=== PATIENT | female | born 1945 | race Caucasian/White ===

== ENCOUNTER → 2020-04-11 | Outpatient (CLI) | payer MEDICARE ==
[~2020-04-11] MED LIST: ASPIRIN325 M2 PO; ASPIRIN325 MG PO; BIOTIN; CHOLESTYRAMINE L4 GM PO; FUROSEMIDE40 MG PO; GLUCOSAMINE CH1 EAC2 PO; HOME PO; LASIX; LEVOTHYROXINE100 MCG PO; MULTIVITAMIN; NEXIUM40 MG; NYSTATIN-TRIAMC15 GM TOP; OMEGA PO; PAXIL40 MG PO; PRENATAL VITAM1 EAC4; REGADENOSON 0.4 MG/5 ML SYR IV ONE; SERTRALINE HCL100 MG PO; TYLENOL; ULTRAM 50MG50 MG PO; VITAMIN; Z.0.AMBIEN10 MG PO; Z.0.CARDURA8 MG PO; Z.0.EFFEXOR XR150 MG PO; Z.0.LEVOTHYROXINE100; Z.0.NEXIUM40 MG PO; Z.0.NORVASC5 MG PO; Z.0.SINGULAIR10 MG PO; Z.1.FISH OIL 1,2001 PO; ZOLPIDEM TARTRA10 MG PO; [UNRECOGNIZED DRUG - CODE] PO
--- NOTE | 2020-04-12 04:29 | Myoview Stress Test ---
DATE OF STUDY: 04/11/2020 09:22:00 Stress Test - Treadmill ONLY Dictation #[id number] PROCEDURE TITLE: Rest/stress single isotope SPECT imaging with pharmacologic stress and gated SPECT imaging. INDICATION: Chest pain. PROCEDURE IN DETAIL: Pharmacologic stress testing was performed with regadenoson per protocol. The heart rate was 72 beats per minute at rest, increased to 94 beats per minute during the regadenoson infusion. The resting blood pressure 124/71 mmHg and increased to 138/47 mmHg, which is a normal response. The resting electrocardiogram demonstrated normal sinus rhythm. There were no ST-segment changes suggestive of myocardial ischemia. Myocardial perfusion imaging was performed at rest following the injection of 11 mCi of tetrofosmin. At peak pharmacologic effect, the patient was injected with 31.6 mCi of tetrofosmin. Gated post-stress tomographic imaging was performed. FINDINGS: The overall quality of study is fair. Left ventricular cavity is noted to be normal size on the rest and stress studies. SPECT images demonstrate homogeneous tracer distribution throughout the myocardium. Gated SPECT imaging reveals normal myocardial thickening and wall motion. The left ventricular ejection fraction was calculated to be 66%. IMPRESSION: Myocardial perfusion imaging is normal. Overall, left ventricular systolic function was normal without regional wall motion abnormalities. Kecia Hall MD ABS/MODL /[id number]
== END ==
LOC: NM 09:05
PROVIDERS: ATTEND Internal Medicine
DX: R07.9 Chest pain, unspecified (principal); Z86.73 Personal history of transient ischemic attack (TIA), and cerebral infarction without residual deficits
CPT/HCPCS: 78452; 93017; 93880; A9502; J2785

== ENCOUNTER 2023-08-13 08:35 | Inpatient (IN) | payer MEDICARE ==
[~2023-08-13] VITALS: Ht 160 cm; Wt 76.7 kg
[2023-08-13] VITALS (17 sets, daily range): BP systolic 79–125; BP diastolic 45–98; PULSE 69–90; RESP 16–28; TEMP 98.4–102; O2SAT 87–100
[~2023-08-13 08:35] MED LIST changes: -REGADENOSON 0.4 MG/5 ML SYR IV ONE
[2023-08-13] MEDS ORDERED: METHYLPREDNISOLONE SOD SUCC 125 MG/2ML VIAL IV STA (08:43)
[2023-08-13 09:07] LABS: BASOPHILS % 0.6 % (0.0-1.0); EOSINOPHILS % 0.3 % (0.0-6.0); HEMATOCRIT 36.9 % (34.2-44.1); HEMOGLOBIN 11.7 g/dL (12.0-16.0); LYMPHOCYTES # (AUTO) 0.6 (1.0-3.2); LYMPHOCYTES % 17.2 % (18.0-39.1); MEAN CORPUSCULAR HEMOGLOBIN 29.3 pg (28-32); MEAN CORPUSCULAR HGB CONC 31.7 g/dL (31-35); MEAN CORPUSCULAR VOLUME 92.5 fL (81-99); MONOCYTES # (AUTO) 0.1 (0.2-0.8); MONOCYTES % 3.7 % (4.4-11.3); NEUTROPHILS # (AUTO) 2.8 (2.1-6.9); NEUTROPHILS % 77.9 % (38.7-80.0); PLATELET COUNT 175 x10e3/uL (140-360); RED BLOOD COUNT 3.99 x10e6/uL (3.6-5.1); RED CELL DISTRIBUTION WIDTH 13.6 % (11.7-14.4); WHITE BLOOD COUNT 3.55 x10e3/uL (4.8-10.8)
[2023-08-13] MEDS ORDERED: SODIUM CHLORIDE 0.9% 500ML 500 ML IV ONE ×2 (09:15→10:30)
[2023-08-13] MEDS ORDERED: ACETAMINOPHEN 1000 MG/100 ML IV STA (09:18)
[2023-08-13] MEDS: Doxycycline IV 100 MG in SODIUM CHLORIDE 0.9% 100 ML IV SCH ×2 (09:24→20:21)
[2023-08-13 09:28] LABS: ABG HCO3 17 mmol/L (22-26); ABG PCO2 31 mmHg (35-45); ABG PH 7.34 (7.35-7.45); ABG PO2 64 mmHg (80-105); ABG TCO2 18
[2023-08-13 09:43] LABS: ALBUMIN 3.5 g/dL (3.5-5.0); ANION GAP 25.6 mmol/L (8-16); BILIRUBIN,TOTAL 1.7 mg/dL (0.2-1.2); CREATININE, SERUM 2.26 mg/dL (0.57-1.11); MAGNESIUM 1.8 MG/DL (1.3-2.1); POTASSIUM 3.6 mmol/L (3.5-5.1); TOTAL PROTEIN 7.1 g/dL (6.5-8.1)
[2023-08-13 09:45] LABS: INR 1.06; PARTIAL THROMBOPLASTIN TIME 31.1 seconds (23.8-35.5)
[2023-08-13 09:49] LABS: TROPONIN I 0.011 ng/mL (0-0.300)
[2023-08-13 09:54] LABS: B-TYPE NATRIURETIC PEPTIDE2 273.1 pg/mL (0-100)
[2023-08-13] MEDS ORDERED: SIMETHICONE 80 MG CHEW PO PRN (10:00)
[2023-08-13] MEDS ORDERED: DOCUSATE SODIUM 100 MG CAP PO PRN (10:00)
[2023-08-13] MEDS ORDERED: ONDANSETRON HCL INJ 2MG/ML 2ML 2 MG/ML VIAL IV PRN ×2 (10:00→11:30)
[2023-08-13] MEDS ORDERED: METOPROLOL TARTRATE INJ 1 MG/ML VIAL IV PRN (10:00)
[2023-08-13] MEDS ORDERED: MELATONIN 3 MG TAB PO PRN (10:00)
[2023-08-13 10:03] LABS: CLARITY,URINE SL CLOUDY (CLEAR); COLOR,URINE YELLOW (YELLOW); LEUKOCYTE ESTERASE ,URINE NEGATIVE (NEGATIVE); NITRITE,URINE NEGATIVE (NEGATIVE); PH,URINE 5.5 (5 - 7)
[2023-08-13 10:04] LABS: BACTERIA,URINE MODERATE /HPF; BILIRUBIN,URINE SMALL (NEGATIVE); EPITHELIAL CELLS,URINE FEW /LPF; GLUCOSE, URINE NEGATIVE (NEGATIVE); KETONES,URINE NEGATIVE (NEGATIVE); PROTEIN,URINE DIPSTICK NEGATIVE (NEGATIVE); RBC,URINE 0-5 /HPF (0-5); URINE UROBILINOGEN 0.2 mg/dL (0.2 - 1); WBC,URINE (MAN) 0-5 /HPF (0-5)
[2023-08-13] MEDS ORDERED: LACTATED RINGER'S 1,000 ML INJ ONE (10:30)
[2023-08-13 10:52] LABS: PLATELET ESTIMATE ADEQUATE; PLATELET MORPHOLOGY COMMENT NORMAL
[2023-08-13] MEDS: LEVOTHYROXINE SODIUM 100 MCG TAB PO SCH (11:00)
[2023-08-13] MEDS ORDERED: NOREPINEPHRINE 8 MG/D5W 250 ML 250 ML IV PRN (11:30)
[2023-08-13 15:07] LABS: TROPONIN I 0.01 ng/mL (0-0.300)
[2023-08-13] MEDS: ACETAMINOPHEN 325 MG TAB PO PRN (19:20)
[2023-08-13] MEDS: ZOLPIDEM TARTRATE 10 MG TAB PO SCH (20:17)
[2023-08-13] MEDS: SERTRALINE HCL 100 MG TAB PO SCH (20:17)
[2023-08-13] MEDS: FAMOTIDINE 20 MG/2 ML VIAL IV SCH (20:21)
[2023-08-14] VITALS (27 sets, daily range): BP systolic 93–146; BP diastolic 55–89; PULSE 68–103; RESP 15–28; TEMP 98.4–100.6; O2SAT 91–100
[2023-08-14 06:25] LABS: HEMATOCRIT 30.2 % (34.2-44.1); HEMOGLOBIN 9.9 g/dL (12.0-16.0); LYMPHOCYTES # (AUTO) 0.4 (1.0-3.2); LYMPHOCYTES % 8.8 % (18.0-39.1); MEAN CORPUSCULAR HEMOGLOBIN 28.9 pg (28-32); MEAN CORPUSCULAR HGB CONC 32.8 g/dL (31-35); MEAN CORPUSCULAR VOLUME 88.3 fL (81-99); MONOCYTES # (AUTO) 0.1 (0.2-0.8); MONOCYTES % 3.1 % (4.4-11.3); NEUTROPHILS # (AUTO) 3.5 (2.1-6.9); NEUTROPHILS % 82.8 % (38.7-80.0); PLATELET COUNT 130 x10e3/uL (140-360); RED BLOOD COUNT 3.42 x10e6/uL (3.6-5.1); RED CELL DISTRIBUTION WIDTH 13.3 % (11.7-14.4); WHITE BLOOD COUNT 4.19 x10e3/uL (4.8-10.8)
[2023-08-14] MEDS: LEVOTHYROXINE SODIUM 100 MCG TAB PO SCH (06:34)
[2023-08-14 06:50] LABS: ALBUMIN 2.8 g/dL (3.5-5.0); ALBUMIN/GLOBULIN RATIO 0.8 (0.8-2.0); ANION GAP 12.7 mmol/L (8-16); BILIRUBIN,TOTAL 1.3 mg/dL (0.2-1.2); CALCIUM 8.6 mg/dL (8.4-10.2); CREATININE, SERUM 1.41 mg/dL (0.57-1.11); POTASSIUM 3.7 mmol/L (3.5-5.1); TOTAL PROTEIN 6.2 g/dL (6.5-8.1)
[2023-08-14 07:16] LABS: TROPONIN I 0.001 ng/mL (0-0.300)
[2023-08-14] MEDS: Doxycycline IV 100 MG in SODIUM CHLORIDE 0.9% 100 ML IV SCH ×2 (08:27→21:13)
[2023-08-14] MEDS: FAMOTIDINE 20 MG/2 ML VIAL IV SCH ×2 (08:28→20:06)
[2023-08-14] MEDS: PANTOPRAZOLE SOD 40 MG TABEC PO SCH (08:28)
[2023-08-14 10:35] LABS: BAND NEUTROPHILS % (MANUAL) 2 %; LYMPHOCYTES % (MANUAL) 12 % (19-48); MONOCYTES % (MANUAL) 5 % (3.4-9.0); NEUTROPHILS % (MANUAL) 81 % (40-74); RBC MORPHOLOGY COMMENT NORMAL
[2023-08-14 10:36] LABS: PLATELET ESTIMATE ADEQUATE; PLATELET MORPHOLOGY COMMENT NORMAL
[2023-08-14] MEDS: ACETAMINOPHEN 325 MG TAB PO PRN ×2 (12:15→18:46)
[2023-08-14] MEDS: SERTRALINE HCL 100 MG TAB PO SCH (20:06)
[2023-08-14] MEDS: ZOLPIDEM TARTRATE 10 MG TAB PO SCH (20:06)
[2023-08-14] MEDS ORDERED: KETOROLAC TROMETHAMINE 30 MG/ML VIAL IM ONE (21:45)
[2023-08-14] MEDS: ENOXAPARIN 30 MG/0.3 ML SYR SC SCH (21:54)
[2023-08-15] VITALS (16 sets, daily range): BP systolic 119–152; BP diastolic 65–80; PULSE 64–94; RESP 16–28; TEMP 98.3–100.6; O2SAT 88–100
[2023-08-15] MEDS: LEVOTHYROXINE SODIUM 100 MCG TAB PO SCH (06:11)
[2023-08-15] MEDS: ACETAMINOPHEN 325 MG TAB PO PRN ×2 (06:27→15:33)
[2023-08-15 06:40] LABS: BASOPHILS % 0.3 % (0.0-1.0); EOSINOPHILS % 0.3 % (0.0-6.0); HEMATOCRIT 29.3 % (34.2-44.1); HEMOGLOBIN 9.7 g/dL (12.0-16.0); LYMPHOCYTES # (AUTO) 0.6 (1.0-3.2); LYMPHOCYTES % 10.5 % (18.0-39.1); MEAN CORPUSCULAR HEMOGLOBIN 29.1 pg (28-32); MEAN CORPUSCULAR HGB CONC 33.1 g/dL (31-35); MONOCYTES # (AUTO) 0.2 (0.2-0.8); NEUTROPHILS % 83.4 % (38.7-80.0); PLATELET COUNT 123 x10e3/uL (140-360); RED BLOOD COUNT 3.33 x10e6/uL (3.6-5.1); RED CELL DISTRIBUTION WIDTH 13.3 % (11.7-14.4)
[2023-08-15 06:58] LABS: ALBUMIN 2.6 g/dL (3.5-5.0); ALBUMIN/GLOBULIN RATIO 0.8 (0.8-2.0); ANION GAP 14.3 mmol/L (8-16); BILIRUBIN,TOTAL 0.8 mg/dL (0.2-1.2); CALCIUM 8.5 mg/dL (8.4-10.2); CREATININE, SERUM 1.14 mg/dL (0.57-1.11); POTASSIUM 3.3 mmol/L (3.5-5.1)
[2023-08-15] MEDS ORDERED: CEFTRIAXONE 1 GM VIAL ONE (08:51)
[2023-08-15] MEDS: Doxycycline IV 100 MG in SODIUM CHLORIDE 0.9% 100 ML IV SCH ×2 (08:52→20:19)
[2023-08-15] MEDS: PANTOPRAZOLE SOD 40 MG TABEC PO SCH (08:52)
[2023-08-15] MEDS: FAMOTIDINE 20 MG/2 ML VIAL IV SCH ×2 (08:52→20:18)
[2023-08-15] MEDS: POTASSIUM CHLORIDE 20MEQ/100ML 100 ML IV SCH ×2 (08:53→11:00)
[2023-08-15] MEDS ORDERED: ENOXAPARIN 30 MG/0.3 ML SYR SC SCH (09:00)
[2023-08-15] MEDS ORDERED: IOPAMIDOL 370 MG/ML 100 ML INFUS..BTL INJ ONE (12:06)
[2023-08-15] MEDS: FUROSEMIDE INJ 10 MG/ML 2 ML VIAL IV SCH (17:26)
[2023-08-15] MEDS: SERTRALINE HCL 100 MG TAB PO SCH (20:19)
[2023-08-15] MEDS: ZOLPIDEM TARTRATE 10 MG TAB PO SCH (20:37)
[2023-08-15] MEDS: ENOXAPARIN 30 MG/0.3 ML SYR SC SCH (20:38)
[2023-08-16] VITALS (13 sets, daily range): BP systolic 133–155; BP diastolic 70–92; PULSE 82–101; RESP 17–29; TEMP 99.4–100.6; O2SAT 87–96
[2023-08-16] MEDS: ACETAMINOPHEN 325 MG TAB PO PRN ×3 (03:46→18:52)
[2023-08-16] MEDS: LEVOTHYROXINE SODIUM 100 MCG TAB PO SCH (06:46)
[2023-08-16 06:47] LABS: BASOPHILS % 0.2 % (0.0-1.0); EOSINOPHILS % 0.4 % (0.0-6.0); HEMATOCRIT 28.5 % (34.2-44.1); HEMOGLOBIN 9.5 g/dL (12.0-16.0); LYMPHOCYTES # (AUTO) 0.6 (1.0-3.2); MEAN CORPUSCULAR HEMOGLOBIN 28.9 pg (28-32); MEAN CORPUSCULAR HGB CONC 33.3 g/dL (31-35); MEAN CORPUSCULAR VOLUME 86.6 fL (81-99); MONOCYTES # (AUTO) 0.4 (0.2-0.8); MONOCYTES % 3.9 % (4.4-11.3); NEUTROPHILS # (AUTO) 8.5 (2.1-6.9); NEUTROPHILS % 83.2 % (38.7-80.0); PLATELET COUNT 145 x10e3/uL (140-360); RED BLOOD COUNT 3.29 x10e6/uL (3.6-5.1); RED CELL DISTRIBUTION WIDTH 13.2 % (11.7-14.4)
[2023-08-16 06:54] LABS: WHITE BLOOD COUNT 10.16 x10e3/uL (4.8-10.8)
[2023-08-16 07:01] LABS: ALBUMIN 2.4 g/dL (3.5-5.0); ALBUMIN/GLOBULIN RATIO 0.7 (0.8-2.0); ANION GAP 15.6 mmol/L (8-16); BILIRUBIN,TOTAL 0.8 mg/dL (0.2-1.2); CALCIUM 8.6 mg/dL (8.4-10.2); CREATININE, SERUM 0.79 mg/dL (0.57-1.11); POTASSIUM 3.6 mmol/L (3.5-5.1); TOTAL PROTEIN 5.8 g/dL (6.5-8.1)
[2023-08-16] MEDS: ALBUTEROL/IPRATROPIUM 3 ML NEB NEB PRN (07:23)
[2023-08-16] MEDS: FUROSEMIDE INJ 10 MG/ML 2 ML VIAL IV SCH ×2 (08:38→16:23)
[2023-08-16] MEDS: PANTOPRAZOLE SOD 40 MG TABEC PO SCH (08:38)
[2023-08-16] MEDS: FAMOTIDINE 20 MG/2 ML VIAL IV SCH ×2 (08:38→20:26)
[2023-08-16] MEDS: Doxycycline IV 100 MG in SODIUM CHLORIDE 0.9% 100 ML IV SCH ×2 (08:39→20:53)
[2023-08-16] MEDS: ENOXAPARIN 30 MG/0.3 ML SYR SC SCH (08:40)
[2023-08-16] MEDS: ZOLPIDEM TARTRATE 10 MG TAB PO SCH (20:10)
[2023-08-16] MEDS: SERTRALINE HCL 100 MG TAB PO SCH (20:10)
[2023-08-17] VITALS (17 sets, daily range): BP systolic 136–165; BP diastolic 71–102; PULSE 66–90; RESP 18–27; TEMP 98.9–100.4; O2SAT 86–99
[2023-08-17] MEDS: LEVOTHYROXINE SODIUM 100 MCG TAB PO SCH (05:43)
[2023-08-17] MEDS: ENOXAPARIN SOD INJ 40 MG/0.4 ML SYR SC SCH (09:06)
[2023-08-17] MEDS: Doxycycline IV 100 MG in SODIUM CHLORIDE 0.9% 100 ML IV SCH ×2 (09:06→21:02)
[2023-08-17] MEDS: FAMOTIDINE 20 MG/2 ML VIAL IV SCH ×2 (09:07→20:26)
[2023-08-17] MEDS: PANTOPRAZOLE SOD 40 MG TABEC PO SCH (09:07)
[2023-08-17] MEDS: FUROSEMIDE INJ 10 MG/ML 2 ML VIAL IV SCH ×2 (09:07→17:42)
[2023-08-17] MEDS: ALBUTEROL/IPRATROPIUM 3 ML NEB NEB PRN ×2 (13:35→19:22)
[2023-08-17] MEDS: ZOLPIDEM TARTRATE 10 MG TAB PO SCH (20:26)
[2023-08-17] MEDS: SERTRALINE HCL 100 MG TAB PO SCH (20:26)
[2023-08-17] MEDS: ACETAMINOPHEN 325 MG TAB PO PRN (20:27)
[2023-08-18] VITALS (25 sets, daily range): BP systolic 134–159; BP diastolic 63–81; PULSE 66–101; RESP 16–26; TEMP 97.8–99.2; O2SAT 83–100
[2023-08-18] MEDS: LEVOTHYROXINE SODIUM 100 MCG TAB PO SCH (05:16)
[2023-08-18] MEDS: ALBUTEROL/IPRATROPIUM 3 ML NEB NEB PRN ×4 (07:25→19:05)
[2023-08-18] MEDS: FUROSEMIDE INJ 10 MG/ML 2 ML VIAL IV SCH ×2 (08:48→16:37)
[2023-08-18] MEDS: FAMOTIDINE 20 MG/2 ML VIAL IV SCH ×2 (08:48→20:21)
[2023-08-18] MEDS: PANTOPRAZOLE SOD 40 MG TABEC PO SCH (08:48)
[2023-08-18] MEDS: ENOXAPARIN SOD INJ 40 MG/0.4 ML SYR SC SCH (08:49)
[2023-08-18] MEDS: Doxycycline IV 100 MG in SODIUM CHLORIDE 0.9% 100 ML IV SCH ×2 (08:49→20:20)
[2023-08-18 09:03] LABS: BASOPHILS % 0.1 % (0.0-1.0); EOSINOPHILS # (AUTO) 0.3 (0.0-0.4); EOSINOPHILS % 2.2 % (0.0-6.0); HEMATOCRIT 31.6 % (34.2-44.1); HEMOGLOBIN 10.5 g/dL (12.0-16.0); LYMPHOCYTES # (AUTO) 1.3 (1.0-3.2); LYMPHOCYTES % 9.5 % (18.0-39.1); MEAN CORPUSCULAR HGB CONC 33.2 g/dL (31-35); MEAN CORPUSCULAR VOLUME 87.3 fL (81-99); MONOCYTES # (AUTO) 0.4 (0.2-0.8); MONOCYTES % 2.8 % (4.4-11.3); NEUTROPHILS # (AUTO) 10.8 (2.1-6.9); NEUTROPHILS % 78.6 % (38.7-80.0); PLATELET COUNT 230 x10e3/uL (140-360); RED BLOOD COUNT 3.62 x10e6/uL (3.6-5.1); RED CELL DISTRIBUTION WIDTH 13.8 % (11.7-14.4); WHITE BLOOD COUNT 13.77 x10e3/uL (4.8-10.8)
[2023-08-18 09:22] LABS: ANION GAP 15.9 mmol/L (8-16); CREATININE, SERUM 0.73 mg/dL (0.57-1.11)
[2023-08-18 09:25] LABS: POTASSIUM 2.9 mmol/L (3.5-5.1)
[2023-08-18 09:46] LABS: EOSINOPHILS % (MANUAL) 1 % (0-7); LYMPHOCYTES % (MANUAL) 12 % (19-48); MONOCYTES % (MANUAL) 1 % (3.4-9.0); MYELOCYTES % (MANUAL) 1 % (0-0); NEUTROPHILS % (MANUAL) 83 % (40-74); PLATELET ESTIMATE ADEQUATE; PLATELET MORPHOLOGY COMMENT NORMAL; RBC MORPHOLOGY COMMENT NORMAL; REACTIVE LYMPHOCYTES 2
[2023-08-18] MEDS: POTASSIUM CHLORIDE 20MEQ/100ML 100 ML IV SCH ×4 (10:01→19:22)
[2023-08-18] MEDS: PREGABALIN 75 MG CAP PO SCH (19:21)
[2023-08-18] MEDS: ZOLPIDEM TARTRATE 10 MG TAB PO SCH (20:20)
[2023-08-18] MEDS: SERTRALINE HCL 100 MG TAB PO SCH (20:20)
[2023-08-19] VITALS (18 sets, daily range): BP systolic 107–148; BP diastolic 54–86; PULSE 73–98; RESP 16–28; TEMP 98.5–99.2; O2SAT 88–100
[2023-08-19] MEDS: LEVOTHYROXINE SODIUM 100 MCG TAB PO SCH (05:28)
[2023-08-19] MEDS: ALBUTEROL/IPRATROPIUM 3 ML NEB NEB PRN ×3 (06:19→19:22)
[2023-08-19 06:59] LABS: ALBUMIN 2.7 g/dL (3.5-5.0); ALBUMIN/GLOBULIN RATIO 0.8 (0.8-2.0); ANION GAP 14.7 mmol/L (8-16); BILIRUBIN,TOTAL 0.8 mg/dL (0.2-1.2); CREATININE, SERUM 0.74 mg/dL (0.57-1.11); POTASSIUM 3.7 mmol/L (3.5-5.1); TOTAL PROTEIN 6.3 g/dL (6.5-8.1)
[2023-08-19 07:06] LABS: BASOPHILS % 0.2 % (0.0-1.0); EOSINOPHILS # (AUTO) 0.5 (0.0-0.4); EOSINOPHILS % 3.4 % (0.0-6.0); HEMATOCRIT 30.5 % (34.2-44.1); HEMOGLOBIN 9.9 g/dL (12.0-16.0); LYMPHOCYTES # (AUTO) 1.4 (1.0-3.2); LYMPHOCYTES % 10.5 % (18.0-39.1); MEAN CORPUSCULAR HEMOGLOBIN 28.9 pg (28-32); MEAN CORPUSCULAR HGB CONC 32.5 g/dL (31-35); MEAN CORPUSCULAR VOLUME 89.2 fL (81-99); MONOCYTES # (AUTO) 0.4 (0.2-0.8); MONOCYTES % 2.9 % (4.4-11.3); NEUTROPHILS # (AUTO) 10.6 (2.1-6.9); NEUTROPHILS % 76.7 % (38.7-80.0); PLATELET COUNT 263 x10e3/uL (140-360); RED BLOOD COUNT 3.42 x10e6/uL (3.6-5.1); RED CELL DISTRIBUTION WIDTH 14.2 % (11.7-14.4); WHITE BLOOD COUNT 13.76 x10e3/uL (4.8-10.8)
[2023-08-19] MEDS: PREGABALIN 75 MG CAP PO SCH ×2 (09:17→16:45)
[2023-08-19] MEDS: FUROSEMIDE INJ 10 MG/ML 2 ML VIAL IV SCH ×2 (09:17→16:45)
[2023-08-19] MEDS: PANTOPRAZOLE SOD 40 MG TABEC PO SCH (09:17)
[2023-08-19] MEDS: ENOXAPARIN SOD INJ 40 MG/0.4 ML SYR SC SCH (09:17)
[2023-08-19] MEDS: FAMOTIDINE 20 MG/2 ML VIAL IV SCH ×2 (09:17→21:38)
[2023-08-19] MEDS: FLUCONAZOLE 100 MG/NS 50 ML 50 ML IV SCH (10:14)
[2023-08-19 10:38] LABS: EOSINOPHILS % (MANUAL) 3 % (0-7); LYMPHOCYTES % (MANUAL) 5 % (19-48); METAMYELOCYTES % (MANUAL) 1 % (0-0); MONOCYTES % (MANUAL) 1 % (3.4-9.0); MYELOCYTES % (MANUAL) 1 % (0-0); NEUTROPHILS % (MANUAL) 89 % (40-74); PLATELET ESTIMATE ADEQUATE
[2023-08-19 10:39] LABS: PLATELET MORPHOLOGY COMMENT NORMAL; RBC MORPHOLOGY COMMENT NORMAL
[2023-08-19] MEDS: ACETAMINOPHEN 325 MG TAB PO PRN ×2 (13:29→21:54)
[2023-08-19] MEDS: SERTRALINE HCL 100 MG TAB PO SCH (21:38)
[2023-08-19] MEDS: ZOLPIDEM TARTRATE 10 MG TAB PO SCH (21:39)
[2023-08-20] VITALS (16 sets, daily range): BP systolic 98–134; BP diastolic 46–71; PULSE 71–154; RESP 16–30; TEMP 98.2–99.1; O2SAT 90–100
[2023-08-20 06:23] LABS: HEMATOCRIT 29.1 % (34.2-44.1); HEMOGLOBIN 9.3 g/dL (12.0-16.0); MEAN CORPUSCULAR HEMOGLOBIN 28.9 pg (28-32); MEAN CORPUSCULAR VOLUME 90.4 fL (81-99); PLATELET COUNT 260 x10e3/uL (140-360); RED BLOOD COUNT 3.22 x10e6/uL (3.6-5.1); RED CELL DISTRIBUTION WIDTH 14.2 % (11.7-14.4); WHITE BLOOD COUNT 15.18 x10e3/uL (4.8-10.8)
[2023-08-20] MEDS: LEVOTHYROXINE SODIUM 100 MCG TAB PO SCH (06:24)
[2023-08-20] MEDS: ACETAMINOPHEN 325 MG TAB PO PRN ×2 (06:25→20:26)
[2023-08-20] MEDS: ALBUTEROL/IPRATROPIUM 3 ML NEB NEB PRN ×5 (07:01→19:03)
[2023-08-20] MEDS: FLUCONAZOLE 100 MG/NS 50 ML 50 ML IV SCH (08:38)
[2023-08-20] MEDS: PREGABALIN 75 MG CAP PO SCH ×2 (08:38→16:52)
[2023-08-20] MEDS: FUROSEMIDE INJ 10 MG/ML 2 ML VIAL IV SCH ×2 (08:38→16:52)
[2023-08-20] MEDS: PANTOPRAZOLE SOD 40 MG TABEC PO SCH (08:39)
[2023-08-20] MEDS: FAMOTIDINE 20 MG/2 ML VIAL IV SCH ×2 (08:39→20:02)
[2023-08-20] MEDS: ENOXAPARIN SOD INJ 40 MG/0.4 ML SYR SC SCH (08:39)
[2023-08-20 12:13] LABS: BAND NEUTROPHILS % (MANUAL) 1 %; EOSINOPHILS % (MANUAL) 2 % (0-7); LYMPHOCYTES % (MANUAL) 9 % (19-48); MONOCYTES % (MANUAL) 1 % (3.4-9.0); NEUTROPHILS % (MANUAL) 87 % (40-74)
[2023-08-20 12:22] LABS: PLATELET ESTIMATE ADEQUATE; PLATELET MORPHOLOGY COMMENT NORMAL
[2023-08-20] MEDS: SERTRALINE HCL 100 MG TAB PO SCH (20:04)
[2023-08-20] MEDS: ZOLPIDEM TARTRATE 10 MG TAB PO SCH (20:26)
[2023-08-21] VITALS (19 sets, daily range): BP systolic 80–149; BP diastolic 41–88; PULSE 77–109; RESP 16–30; TEMP 98.6–99.3; O2SAT 86–100
[2023-08-21] MEDS: LEVOTHYROXINE SODIUM 100 MCG TAB PO SCH (05:55)
[2023-08-21 06:42] LABS: HEMATOCRIT 29.7 % (34.2-44.1); HEMOGLOBIN 9.5 g/dL (12.0-16.0); MEAN CORPUSCULAR HEMOGLOBIN 29.1 pg (28-32); MEAN CORPUSCULAR VOLUME 91.1 fL (81-99); PLATELET COUNT 292 x10e3/uL (140-360); RED BLOOD COUNT 3.26 x10e6/uL (3.6-5.1); RED CELL DISTRIBUTION WIDTH 13.9 % (11.7-14.4); WHITE BLOOD COUNT 13.11 x10e3/uL (4.8-10.8)
[2023-08-21] MEDS: ALBUTEROL/IPRATROPIUM 3 ML NEB NEB PRN ×3 (07:23→19:18)
[2023-08-21] MEDS: FAMOTIDINE 20 MG/2 ML VIAL IV SCH ×2 (08:45→20:42)
[2023-08-21] MEDS: ENOXAPARIN SOD INJ 40 MG/0.4 ML SYR SC SCH (08:45)
[2023-08-21] MEDS: PREGABALIN 75 MG CAP PO SCH ×2 (08:46→16:00)
[2023-08-21] MEDS: PANTOPRAZOLE SOD 40 MG TABEC PO SCH (08:46)
[2023-08-21] MEDS: FLUCONAZOLE 100 MG/NS 50 ML 50 ML IV SCH (08:46)
[2023-08-21] MEDS: FUROSEMIDE INJ 10 MG/ML 2 ML VIAL IV SCH ×2 (08:46→16:00)
[2023-08-21] MEDS: MAALOX/LIDOCAINE/BENADRYL/NYST 30 ML BTL PO PRN ×3 (10:00→20:54)
[2023-08-21] MEDS: SERTRALINE HCL 100 MG TAB PO SCH (20:44)
[2023-08-21] MEDS: ZOLPIDEM TARTRATE 10 MG TAB PO SCH (20:44)
[2023-08-22] VITALS (21 sets, daily range): BP systolic 107–135; BP diastolic 53–75; PULSE 80–97; RESP 13–24; TEMP 97.9–98.9; O2SAT 85–100
[2023-08-22] MEDS: LEVOTHYROXINE SODIUM 100 MCG TAB PO SCH (06:04)
[2023-08-22] MEDS: MAALOX/LIDOCAINE/BENADRYL/NYST 30 ML BTL PO PRN ×3 (06:44→16:00)
[2023-08-22 06:51] LABS: BASOPHILS # (AUTO) 0.1 (0.0-0.1); BASOPHILS % 0.5 % (0.0-1.0); EOSINOPHILS # (AUTO) 0.3 (0.0-0.4); EOSINOPHILS % 3.6 % (0.0-6.0); HEMATOCRIT 30.1 % (34.2-44.1); HEMOGLOBIN 9.5 g/dL (12.0-16.0); LYMPHOCYTES # (AUTO) 1.1 (1.0-3.2); LYMPHOCYTES % 11.1 % (18.0-39.1); MEAN CORPUSCULAR HEMOGLOBIN 28.8 pg (28-32); MEAN CORPUSCULAR HGB CONC 31.6 g/dL (31-35); MEAN CORPUSCULAR VOLUME 91.2 fL (81-99); MONOCYTES # (AUTO) 0.4 (0.2-0.8); MONOCYTES % 4.5 % (4.4-11.3); NEUTROPHILS # (AUTO) 7.5 (2.1-6.9); NEUTROPHILS % 78.8 % (38.7-80.0); PLATELET COUNT 315 x10e3/uL (140-360); WHITE BLOOD COUNT 9.54 x10e3/uL (4.8-10.8)
[2023-08-22 07:18] LABS: ALBUMIN 2.5 g/dL (3.5-5.0); ALBUMIN/GLOBULIN RATIO 0.7 (0.8-2.0); ANION GAP 12.2 mmol/L (8-16); BILIRUBIN,TOTAL 0.6 mg/dL (0.2-1.2); CALCIUM 8.8 mg/dL (8.4-10.2); CREATININE, SERUM 0.75 mg/dL (0.57-1.11); POTASSIUM 3.2 mmol/L (3.5-5.1); TOTAL PROTEIN 6.1 g/dL (6.5-8.1)
[2023-08-22] MEDS: ALBUTEROL/IPRATROPIUM 3 ML NEB NEB PRN ×3 (07:20→18:50)
[2023-08-22] MEDS: FUROSEMIDE INJ 10 MG/ML 2 ML VIAL IV SCH ×2 (08:37→17:00)
[2023-08-22] MEDS: ENOXAPARIN SOD INJ 40 MG/0.4 ML SYR SC SCH (08:37)
[2023-08-22] MEDS: FAMOTIDINE 20 MG/2 ML VIAL IV SCH ×2 (08:37→20:01)
[2023-08-22] MEDS: POTASSIUM CHLORIDE 20MEQ/100ML 100 ML IV SCH ×2 (08:38→10:53)
[2023-08-22] MEDS: ACETAMINOPHEN 325 MG TAB PO PRN (08:38)
[2023-08-22] MEDS: PANTOPRAZOLE SOD 40 MG TABEC PO SCH (08:38)
[2023-08-22] MEDS: PREGABALIN 75 MG CAP PO SCH ×2 (08:38→17:00)
[2023-08-22] MEDS: ZOLPIDEM TARTRATE 10 MG TAB PO SCH (20:00)
[2023-08-22] MEDS: SERTRALINE HCL 100 MG TAB PO SCH (20:00)
[2023-08-23] VITALS (22 sets, daily range): BP systolic 93–156; BP diastolic 50–90; PULSE 59–103; RESP 15–26; TEMP 97.5–98.5; O2SAT 89–100
[2023-08-23] MEDS: LEVOTHYROXINE SODIUM 100 MCG TAB PO SCH (06:01)
[2023-08-23] MEDS: ALBUTEROL/IPRATROPIUM 3 ML NEB NEB PRN ×3 (07:16→20:19)
[2023-08-23] MEDS: MAALOX/LIDOCAINE/BENADRYL/NYST 30 ML BTL PO PRN ×3 (07:43→17:50)
[2023-08-23] MEDS: FUROSEMIDE INJ 10 MG/ML 2 ML VIAL IV SCH ×2 (08:47→16:57)
[2023-08-23] MEDS: FAMOTIDINE 20 MG/2 ML VIAL IV SCH ×2 (08:47→21:58)
[2023-08-23] MEDS: PREGABALIN 75 MG CAP PO SCH ×2 (08:47→16:57)
[2023-08-23] MEDS: PANTOPRAZOLE SOD 40 MG TABEC PO SCH (08:47)
[2023-08-23] MEDS: ENOXAPARIN SOD INJ 40 MG/0.4 ML SYR SC SCH (08:48)
[2023-08-23] MEDS: SERTRALINE HCL 100 MG TAB PO SCH (21:48)
[2023-08-23] MEDS: ZOLPIDEM TARTRATE 10 MG TAB PO SCH (21:48)
[2023-08-23] MEDS: ACETAMINOPHEN 325 MG TAB PO PRN (22:05)
[2023-08-24] VITALS (7 sets, daily range): BP systolic 105–117; BP diastolic 55–84; PULSE 84–100; RESP 16–21; TEMP 97.7–98.6; O2SAT 92–100
[2023-08-24] MEDS: LEVOTHYROXINE SODIUM 100 MCG TAB PO SCH (06:35)
[2023-08-24] MEDS: ALBUTEROL/IPRATROPIUM 3 ML NEB NEB PRN ×2 (07:34→14:35)
[2023-08-24 07:50] LABS: HEMATOCRIT 30.8 % (34.2-44.1); HEMOGLOBIN 9.6 g/dL (12.0-16.0)
[2023-08-24] MEDS: FAMOTIDINE 20 MG/2 ML VIAL IV SCH (08:53)
[2023-08-24] MEDS: FUROSEMIDE INJ 10 MG/ML 2 ML VIAL IV SCH (08:53)
[2023-08-24] MEDS: PANTOPRAZOLE SOD 40 MG TABEC PO SCH (08:53)
[2023-08-24] MEDS: PREGABALIN 75 MG CAP PO SCH (08:53)
[2023-08-24] MEDS: ENOXAPARIN SOD INJ 40 MG/0.4 ML SYR SC SCH (08:54)
[2023-08-24] MEDS ORDERED: ONDANSETRON HCL 4 MG ORAL DISINTEGRATING TAB PO PRN (10:00)
[2023-08-24] MEDS: ACETAMINOPHEN 325 MG TAB PO PRN (13:47)
== END 2023-08-24 16:22 | DRG 871 ==
LOC: ER 08:45 → ERHOLD 11:25 → ICU 14:45 → MED/SURG 08-23 20:26
PROVIDERS: ADMIT Internal Medicine; ATTEND Internal Medicine
PROC: 3E043XZ Introduction of Vasopressor into Central Vein, Percutaneous Approach (ICD-10-PCS; principal; 2023-08-13)
PROC: 02HV33Z Insertion of Infusion Device into Superior Vena Cava, Percutaneous Approach (ICD-10-PCS; 2023-08-13)
PROC: B548ZZA Ultrasonography of Superior Vena Cava, Guidance (ICD-10-PCS; 2023-08-13)
DX: A40.3 Sepsis due to Streptococcus pneumoniae (principal); I50.31 Acute diastolic (congestive) heart failure; J15.4 Pneumonia due to other streptococci; J96.01 Acute respiratory failure with hypoxia; R65.21 Severe sepsis with septic shock; N17.9 Acute kidney failure, unspecified; J44.1 Chronic obstructive pulmonary disease with (acute) exacerbation; I13.0 Hypertensive heart and chronic kidney disease with heart failure and stage 1 through stage 4 chronic kidney disease, or unspecified chronic kidney disease; E87.20 Acidosis, unspecified; J44.0 Chronic obstructive pulmonary disease with (acute) lower respiratory infection; E87.1 Hypo-osmolality and hyponatremia; J84.9 Interstitial pulmonary disease, unspecified; N18.9 Chronic kidney disease, unspecified; E03.9 Hypothyroidism, unspecified; E78.5 Hyperlipidemia, unspecified; K57.90 Diverticulosis of intestine, part unspecified, without perforation or abscess without bleeding; M79.7 Fibromyalgia; F17.200 Nicotine dependence, unspecified, uncomplicated; M19.90 Unspecified osteoarthritis, unspecified site; F41.9 Anxiety disorder, unspecified; F31.9 Bipolar disorder, unspecified; R13.12 Dysphagia, oropharyngeal phase; K44.9 Diaphragmatic hernia without obstruction or gangrene; Z20.822 Contact with and (suspected) exposure to COVID-19
CPT/HCPCS: 36415; 36555; 36600; 51700; 71045; 71260; 74230; 80048; 80053; 81001; 82550; 82805; 83605; 83735; 83880; 84132; 84484; 85007; 85014; 85018; 85025; 85027; 85610; 85730; 87040; 87071; 87086; 87186; 87205; 87400; 87449; 93005; 93306; 94640; 94660; 94667; 94668; 94669; 94799; 99285; J0696; J1450; J1650; J1885; J1940; J2930; J3480; J7040; J7050; Q9967; U0002

== ENCOUNTER → 2025-06-03 | Outpatient (REF) | payer MEDICARE | LOC: RAD 11:12 | PROVIDERS: ATTEND Internal Medicine | DX: M25.552 Pain in left hip (principal) ==